=== PATIENT | female | born 1975 | race Hispanic/Latino ===

== ENCOUNTER 2022-08-20 12:45 | Emergency (ER) | payer BC ==
[~2022-08-20] VITALS: Ht 170.2 cm; Wt 119.3 kg
[2022-08-20 14:15] LABS: HEMATOCRIT 34.8 % (36-48); MEAN CORPUSCULAR HGB CONC 32.8 g/dL (32.0-36.0); MEAN CORPUSCULAR VOLUME 85.5 fL (79-99); PLATELET COUNT (AUTO) 275 K/uL (130-400); RED BLOOD CELL COUNT(AUTO) 4.07 MIL/uL (4.00-5.50); RED CELL DISTRIBUTION WIDTH 13.3 % (11.0-15.5); WHITE BLOOD COUNT (AUTO) 9.6 K/uL (4.8-10.8)
[2022-08-20 14:26] LABS: BASOPHILS % (AUTO) 0.4 % (0.0-5.0); EOSINOPHILS % (AUTO) 1.3 % (0.0-8.0); LYMPHOCYTES % (AUTO) 16.4 % (21.0-51.0); MONOCYTES % (AUTO) 4.2 % (3.0-13.0); NEUTROPHILS % (AUTO) 77.5 % (40.0-77.0)
[2022-08-20 14:29] LABS: ALBUMIN 3.7 g/dL (3.5-5.0); TOTAL PROTEIN, SERUM 7.7 g/dL (6.0-8.3)
[2022-08-20] MEDS ORDERED: 0.9%NACL 1000ML 1,000 ML IV ONE (15:30)
[2022-08-20] MEDS ORDERED: FERR-82 PO (16:36)
[2022-08-20 16:59] VITALS: BP 126/90
== END 2022-08-20 17:00 | disposition home or self-care (01) ==
LOC: EDH 12:45
DX: N93.8 Other specified abnormal uterine and vaginal bleeding (principal); D64.9 Anemia, unspecified; N83.291 Other ovarian cyst, right side
CPT/HCPCS: 99284; 96360; 76856; 80053; 84703; 85025; 36415; J7030